=== PATIENT | female | born 2000 | race Two or more races ===

== ENCOUNTER 2023-09-18 08:17 | Emergency (ER) | payer MEDICAID, OTHER ==
[~2023-09-18] VITALS: Ht 170.2 cm; Wt 108.0 kg
[2023-09-18 08:53] VITALS: BP 115/82; PULSE 102; RESP 16; TEMP 98.5; O2SAT 99
[2023-09-18] MEDS ORDERED: KETOROLAC TROMETH 60MG/2ML VIAL IM ONE (09:00)
[2023-09-18] MEDS ORDERED: IBUP-1456 PO (09:24)
== END 2023-09-18 09:30 | disposition home or self-care (01) ==
LOC: EDBD 08:17 → ER 08:17
DX: S00.03XA Contusion of scalp, initial encounter (principal); S50.11XA Contusion of right forearm, initial encounter; S50.312A Abrasion of left elbow, initial encounter; R94.31 Abnormal electrocardiogram [ECG] [EKG]; V43.62XA Car passenger injured in collision with other type car in traffic accident, initial encounter; Y93.89 Activity, other specified; Y92.89 Other specified places as the place of occurrence of the external cause; Y99.8 Other external cause status
CPT/HCPCS: 70450; 93005; 96372; 99285; J1885